=== PATIENT | female | born 1970 | race African-American/Black ===

== ENCOUNTER 2016-07-02 18:58 | Emergency (ER) | payer OTHER ==
[2016-07-02 19:10] VITALS: TEMP 98.4; BMI 41.9
--- NOTE | 2016-07-02 19:37 | PDOC ---
History of Present Illness - History of Present Illness Initial Comments: 07/02/16 19:52 Patient is a 46 year old female with no significant medical hx who is presenting to the ED with allergic reaction after antibiotic ingestion since this evening. Today the patient saw her urologist and started a course of Flagyl and Macrobid secondary to a bladder infection she developed after her hysterectomy (06/06/16). The patient reports after administering the medication and eating a salad, she developed burning and itching to her fingertips, chest tightness, and difficulty swallowing. The patient took two benadryl after 6 PM and states feeling better at this time. She did not administer an EpiPen. The patient states that usually during an allergic reaction she experiences itchiness, throat and chest tightness, hives and shortness of breath. She denies any rashes or difficulty breathing. Allergies: Antibiotics. Denies food allergies. PCP: Chika Paris MD Urologist: Fran Willis MD <Kaitlynn Hawk - Last Filed: 07/02/16 19:52> <Renetta Rodríguez - Last Filed: 07/03/16 01:14> - General Chief Complaint: Allergic Reaction Stated Complaint: Allergic Reaction Time Seen by Provider: 07/02/16 19:12 Past History <Kaitlynn Hawk - Last Filed: 07/02/16 19:52> - Past Medical History Anemia: No Asthma: No Cancer: No Cardiac Disorders: No CVA: No COPD: No CHF: No Dementia: No Diabetes: No GI Disorders: No Disorders: Yes (MULTIPLE UTI'S, RENAL CALCULI) HTN: No Hypercholesterolemia: No Kidney Stones: Yes Liver Disease: No Psychiatric Problems: Yes (DEPRESSION ANXIETY) Seizures: No Thyroid Disease: Yes ("thyroid" problem) - Surgical History Abdominal Surgery: Yes (TUBAL LIGATION) Appendectomy: No Cardiac Surgery: No Cholecystectomy: No Lung Surgery: No Neurologic Surgery: No Orthopedic Surgery: No - Immunization History Immunization Up to Date: Yes - Psycho/Social/Smoking Cessation Hx Anxiety: No Suicidal Ideation: No Smoking Status: No Smoking History: Never smoked Have you smoked in the past 12 months: No Number of Cigarettes Smoked Daily: 0 If you are a former smoker, when did you quit?: 18months ago Information on smoking cessation initiated: No Hx Alcohol Use: No Drug/Substance Use Hx: No Substance Use Type: None Hx Substance Use Treatment: No <Renetta Rodríguez - Last Filed: 07/03/16 01:14> - Past Medical History Allergies/Adverse Reactions: Allergies Allergy/AdvReac Type Severity Reaction Status Date / Time cephalexin monohydrate Allergy Rash Verified 07/02/16 19:10 [From Keflex] ciprofloxacin [From Cipro] Allergy Rash Verified 07/02/16 19:10 ciprofloxacin HCl Allergy Rash Verified 07/02/16 19:10 [From Cipro] gentamicin [Gentamicin] Allergy Rash Verified 07/02/16 19:10 levofloxacin [From Levaquin] Allergy Rash Verified 07/02/16 19:10 nitrofurantoin Allergy Hives Verified 07/02/16 20:26 [From Macrobid] nitrofurantoin Allergy Hives Verified 07/02/16 20:26 macrocrystalline [From Macrobid] Penicillins Allergy Rash Verified 07/02/16 19:10 Sulfa (Sulfonamide Allergy Rash Verified 07/02/16 19:10 Antibiotics) [Sulfa(Sulfonamide Antibiotics)] Home Medications: Ambulatory Orders Sertraline HCl [Zoloft] 100 mg PO BID 06/02/15 Meloxicam [Mobic] 15 mg PO DAILY 03/12/16 Buspirone HCl [Buspar -] 5 mg PO DAILY 07/02/16 Gabapentin [Neurontin] 600 mg PO DAILY 07/02/16 Oxycodone HCl [Roxicodone -] 5 mg PO ASDIR PRN 07/02/16 Review of Systems - Review of Systems Comments:: 07/02/16 20:03 CONSTITUTIONAL: Absent: fever, chills, diaphoresis, generalized weakness, malaise, loss of appetite HEENT: Present: difficult swallowing Absent: rhinorrhea, nasal congestion, throat pain, throat swelling, mouth swelling, ear pain, eye pain, visual changes CARDIOVASCULAR: Present: chest tightness Absent: syncope, palpitations, irregular heart rate, lightheadedness, peripheral edema RESPIRATORY: Absent: cough, shortness of breath, dyspnea with exertion, orthopnea, wheezing, stridor, hemoptysis GASTROINTESTINAL: Absent: abdominal pain, abdominal distension, nausea, vomiting, diarrhea, constipation, melena, hematochezia GENITOURINARY: Absent: dysuria, frequency, urgency, hesitancy, hematuria, flank pain, genital pain MUSCULOSKELETAL: Absent: myalgia, arthralgia, joint swelling SKIN: Absent: rash, itching, pallor HEMATOLOGIC/IMMUNOLOGIC: Absent: easy bleeding, easy bruising, lymphadenopathy, frequent infections ENDOCRINE: Absent: unexplained weight gain, unexplained weight loss, heat intolerance, cold intolerance NEUROLOGIC: Present: tingling and itchiness to fingertips Absent: headache, focal weakness or paresthesia, dizziness, unsteady gait, seizure, mental status changes, bladder or bowel incontinence. PSYCHIATRIC: Absent: anxiety, depression, suicidal or homicidal ideation, hallucinations <Kaitlynn Hawk - Last Filed: 07/02/16 19:52> *Physical Exam - Vital Signs Last Vital Signs Temp Pulse Resp BP Pulse Ox 98.4 F 71 18 131/78 98 07/02/16 18:59 07/02/16 18:59 07/02/16 18:59 07/02/16 18:59 07/02/16 18:59 - Physical Exam Comments: 07/02/16 20:04 GENERAL: Well developed, well nourished. Awake and alert. No acute distress. HEENT: Normocephalic, atraumatic. PERRLA, EOMI. No conjunctival pallor. Sclera are non- icteric. Moist mucous membranes. Oropharynx is clear. Uvula is midline and nonedematous. No lip swelling. No hot potato voice. NECK: Supple. Full ROM. No JVD. Carotid pulses 2+ and symmetric, without bruits. No thyromegaly. No lymphadenopathy. CARDIOVASCULAR: Regular rate and rhythm. No murmurs, rubs, or gallops. Distal pulses are 2+ and symmetric. PULMONARY: No evidence of respiratory distress. Lungs clear to auscultation bilaterally. No wheezing, rales or rhonchi. ABDOMINAL: Protuberant. Soft. Non-tender. Non-distended. No rebound or guarding. No organomegaly. Normoactive bowel sounds. MUSCULOSKELETAL: Normal range of motion at all joints. No bony deformities or tenderness. No CVA tenderness. EXTREMITIES: No cyanosis. No clubbing. No edema. No calf tenderness. SKIN: Warm and dry. Normal capillary refill. No rashes. No jaundice. NEUROLOGICAL: Alert, awake, appropriate. Cranial nerves 2-12 intact. Normal speech. Gait is normal without ataxia. PSYCHIATRIC: Cooperative. Good eye contact. Appropriate mood and affect. <Kaitlynn Hawk - Last Filed: 07/02/16 19:52> - Vital Signs Last Vital Signs Temp Pulse Resp BP Pulse Ox 98.4 F 71 18 131/78 98 07/02/16 18:59 07/02/16 18:59 07/02/16 18:59 07/02/16 18:59 07/02/16 18:59 <Renetta Rodríguez - Last Filed: 07/03/16 01:14> Medical Decision Making - Medical Decision Making 07/03/16 01:12 46 yo female w multiple antibiotics allergies took macrobid and dev hives and some chest tightness that completely resolved after steroids and benadryl -no wheezing/uvula midline IMP drug allergy <Renetta Rodríguez - Last Filed: 07/03/16 01:14> *DC/Admit/Observation/Transfer - Attestations Scribe Attestion: 07/02/16 20:05 Documentation prepared by Kaitlynn Hawk, acting as biomedical specialist for Renetta Rodríguze MD. <Kaitlynn Hawk - Last Filed: 07/02/16 19:52> <Renetta Rodríguez - Last Filed: 07/03/16 01:14> Diagnosis at time of Disposition: Multiple drug allergies - Discharge Dispostion Disposition: HOME Condition at time of disposition: Stable - Referrals Referrals: Chika Paris MD [Primary Care Provider] - - Patient Instructions Printed Discharge Instructions: DI for Adverse Drug Reaction -- Allergic Additional Instructions: please take benadryl if you develop any further itching return for any breathing difficulties
[2016-07-02] MEDS ORDERED: methylPREDNISolone NA SUCC 125 MG/2 ML VIAL IVPB ONE (19:41)
[2016-07-02] MEDS ORDERED: methylPREDNISolone NA SUCC 125 MG/2 ML VIAL ONE ×2 (19:53→19:54)
[2016-07-02 21:14] VITALS: BP 133/83; PULSE 84
== END 2016-07-02 21:12 | disposition home or self-care (01) ==
LOC: JER 18:58
PROC: 3E0333Z Introduction of Anti-inflammatory into Peripheral Vein, Percutaneous Approach (ICD-10-PCS; principal; 2016-07-02)
DX: L50.0 Allergic urticaria (principal); T36.8X5A Adverse effect of other systemic antibiotics, initial encounter; Y92.89 Other specified places as the place of occurrence of the external cause
CPT/HCPCS: 96374; 96375; 99283-25

== ENCOUNTER 2016-12-08 06:40 | Emergency (ER) | payer OTHER ==
[2016-12-08 06:57] VITALS: BP 139/83; PULSE 97; TEMP 98.4; BMI 41.9
[2016-12-08 08:18] LABS: BASOPHIL 1.1 % (0-2.0); EOSINOPHIL 1.8 % (0-4.5); MCH 30.4 pg (25.7-33.7); MCHC 33.7 g/dl (32.0-36.0); MEAN PLT VOLUME 6.8 fl (7.5-11.1); PLATELET COUNT 269 K/MM3 (134-434); RDW 14.1 % (11.6-15.6); WHITE BLOOD COUNT 7.4 K/mm3 (4.0-10.0)
--- NOTE | 2016-12-08 08:21 | PDOC ---
History of Present Illness - General History Source: Patient - History of Present Illness Occurred: reports: last week Lower Extremity Pain Location: bilateral: leg <Deepa BynumPhi - Last Filed: 12/08/16 10:02> <Rodrigue Mcmanus - Last Filed: 12/08/16 17:39> - General Chief Complaint: Edema Stated Complaint: SWELLING OF FEET Time Seen by Provider: 12/08/16 07:08 Past History - Past Medical History Anemia: No Asthma: No Cancer: No Cardiac Disorders: No CVA: No COPD: No CHF: No Dementia: No Diabetes: No GI Disorders: No Disorders: Yes (MULTIPLE UTI'S, RENAL CALCULI) HTN: No Hypercholesterolemia: No Kidney Stones: Yes Liver Disease: No Psychiatric Problems: Yes (DEPRESSION ANXIETY) Seizures: No Thyroid Disease: Yes ("thyroid" problem) - Surgical History Abdominal Surgery: Yes (TUBAL LIGATION) Appendectomy: No Cardiac Surgery: No Cholecystectomy: No Lung Surgery: No Neurologic Surgery: No Orthopedic Surgery: No - Immunization History Immunization Up to Date: Yes - Psycho/Social/Smoking Cessation Hx Anxiety: No Suicidal Ideation: No Smoking Status: No Smoking History: Never smoked Have you smoked in the past 12 months: No Number of Cigarettes Smoked Daily: 0 If you are a former smoker, when did you quit?: 18months ago Information on smoking cessation initiated: No Hx Alcohol Use: No Drug/Substance Use Hx: No Substance Use Type: None Hx Substance Use Treatment: No <Deepa BynumPhi - Last Filed: 12/08/16 10:02> <Rodrigue Mcmanus - Last Filed: 12/08/16 17:39> - Past Medical History Allergies/Adverse Reactions: Allergies Allergy/AdvReac Type Severity Reaction Status Date / Time cephalexin monohydrate Allergy Rash Verified 12/08/16 06:56 [From Keflex] ciprofloxacin [From Cipro] Allergy Rash Verified 12/08/16 06:56 ciprofloxacin HCl Allergy Rash Verified 12/08/16 06:56 [From Cipro] gentamicin [Gentamicin] Allergy Rash Verified 12/08/16 06:56 levofloxacin [From Levaquin] Allergy Rash Verified 12/08/16 06:56 nitrofurantoin Allergy Hives Verified 12/08/16 06:56 [From Macrobid] nitrofurantoin Allergy Hives Verified 12/08/16 06:56 macrocrystalline [From Macrobid] Penicillins Allergy Rash Verified 12/08/16 06:56 Sulfa (Sulfonamide Allergy Rash Verified 12/08/16 06:56 Antibiotics) [Sulfa(Sulfonamide Antibiotics)] Home Medications: Ambulatory Orders Sertraline HCl [Zoloft] 100 mg PO BID 06/02/15 Meloxicam [Mobic] 15 mg PO DAILY 03/12/16 Gabapentin [Neurontin] 600 mg PO DAILY 07/02/16 Oxycodone HCl [Roxicodone -] 5 mg PO ASDIR PRN 07/02/16 Cyclobenzaprine HCl [Flexeril -] 10 mg PO TID 12/08/16 Trazodone HCl 0 mg PO HS 12/08/16 Review of Systems - Review of Systems Constitutional: No: Chills, Fever Respiratory: No: Shortness of Breath Cardiac (ROS): No: Chest Pain <Natty Bynum - Last Filed: 12/08/16 10:02> *Physical Exam - Vital Signs Last Vital Signs Temp Pulse Resp BP Pulse Ox 98.4 F 97 H 18 139/83 97 12/08/16 06:56 12/08/16 06:56 12/08/16 06:56 12/08/16 06:56 12/08/16 07:20 - Physical Exam General Appearance: Yes: Appropriately Dressed. No: Apparent Distress HEENT: positive: Normal Voice Neck: positive: Supple Respiratory/Chest: positive: Lungs Clear, Normal Breath Sounds. negative: Respiratory Distress Cardiovascular: positive: Regular Rate, S1, S2 Extremity: positive: Pedal Edema (R>L, non-tender, no erythema, skin warm b/l, unable to palpate pulses 2/2 swelling) Integumentary: positive: Dry, Warm Neurologic: positive: Fully Oriented, Alert, Normal Mood/Affect <Natty Bynum - Last Filed: 12/08/16 10:02> - Vital Signs Last Vital Signs Temp Pulse Resp BP Pulse Ox 98.4 F 97 H 18 139/83 97 12/08/16 06:56 12/08/16 06:56 12/08/16 06:56 12/08/16 06:56 12/08/16 07:20 <Rodrigue Mcmanus - Last Filed: 12/08/16 17:39> ED Treatment Course - LABORATORY CBC & Chemistry Diagram: 12/08/16 07:35 12/08/16 07:35 - RADIOLOGY Radiology Studies Ordered: Category Date Time Status DUPLEX VASCUL [id number] [US] Stat Ultrasound 12/08/16 07:34 Ordered <Natty Bynum - Last Filed: 12/08/16 10:02> - LABORATORY CBC & Chemistry Diagram: 12/08/16 07:35 12/08/16 07:35 - ADDITIONAL ORDERS Additional order review: Laboratory Results 12/08/16 12/08/16 08:00 07:35 Sodium 139 Potassium 4.0 Chloride 104 Carbon Dioxide 28 Anion Gap 7 L BUN 13 D Creatinine 0.8 D Creat Clearance w eGFR > 60 Random Glucose 117 H Calcium 8.6 Total Bilirubin 0.5 D AST 29 D ALT 27 D Alkaline Phosphatase 61 B-Natriuretic Peptide 17.79 Total Protein 7.1 Albumin 3.4 Urine Color Ltyellow Urine Appearance Clear Urine pH 6.0 Ur Specific [place] 1.020 Urine Protein Negative Urine Glucose (UA) Negative Urine Ketones Negative Urine Blood 1+ H Urine Nitrite Negative Urine Bilirubin Negative Urine Urobilinogen 4.0 e.u/dl H Ur Leukocyte Esterase Negative Urine RBC 4 Urine WBC 1 Ur Epithelial Cells Moderate Urine Bacteria Rare Urine Mucus Rare 12/08/16 07:35 RBC 3.91 MCV 90.0 MCHC 33.7 RDW 14.1 MPV 6.8 L Neutrophils % 54.0 D Lymphocytes % 37.6 Monocytes % 5.5 Eosinophils % 1.8 Basophils % 1.1 <Rodrigue Mcmanus - Last Filed: 12/08/16 17:39> Medical Decision Making - Medical Decision Making 12/08/16 07:37 46 yo F, morbidly obesed, fibromyalgia, p/w LE swelling. Pt reports b/l LE swelling x 1 week. No pain. Had similar symptoms in the past and was evaluated by vascular and diagnosed with ?venous stasis. Was given compression stockings at the time, which improved symptoms. Patient states she returned from the [place] several days ago and that symptoms recurred while there. Denies any chest pain, shortness of breath or palpitations See exam Recurrent LE edema Dx w/ venous stasis in the past No resp/chest complaints No new meds -basic labs -US given recent travel though DVT unlikely given HPI -anticipate discharge w/ vasc f/u 12/08/16 08:21 12/08/16 10:02 Labs and US unremarkable. Stable for discharge w/ vascular f/u <Natty Bynum - Last Filed: 12/08/16 10:02> - Medical Decision Making 12/08/16 17:39 The patient was seen and evaluated in conjunction with RAVEN Bynum under my direct supervision, ancillary studies were reviewed. I agree with the plan as outlined by RAVEN Bynum. <Rodrigue Mcmanus - Last Filed: 12/08/16 17:39> *DC/Admit/Observation/Transfer <Natty Bynum - Last Filed: 12/08/16 10:02> <Rodrigue Mcmanus - Last Filed: 12/08/16 17:39> Diagnosis at time of Disposition: Edema Qualifiers: Edema type: localized Qualified Code(s): R60.0 - Localized edema - Discharge Dispostion Disposition: HOME Condition at time of disposition: Good - Referrals Referrals: Chika Paris MD [Primary Care Provider] - - Patient Instructions Printed Discharge Instructions: DI for Peripheral Edema -- Bilateral Additional Instructions: The cause of your edema is unclear at this time as your labs an ultrasound were normal. It is possible that swelling is due to faulty leg veins. Elevate legs at home and follow-up with your vascular doctor for further evaluation
[2016-12-08 08:48] LABS: ALBUMIN 3.4 g/dl (3.4-5.0); ANION GAP 7 (8-16); BILIRUBIN,TOTAL 0.5 mg/dL (0.2-1.0); CALCIUM 8.6 mg/dL (8.5-10.1); CO2 28 mmol/L (21-32); CREATININE 0.8 mg/dL (0.55-1.02); GLUCOSE,RANDOM 117 mg/dL (74-106); SGOT/AST 29 U/L (15-37); SGPT/ALT 27 U/L (12-78); TOT PROT 7.1 g/dl (6.4-8.2)
[2016-12-08 08:50] LABS: ALK PHOS 61 U/L (45-117)
[2016-12-08 09:13] LABS: URINE APPEARANCE CLEAR; URINE BILIRUBIN NEGATIVE (NEGATIVE); URINE BLOOD 1+ (NEGATIVE); URINE COLOR LTYELLOW; URINE GLUCOSE (UA) NEGATIVE (NEGATIVE); URINE KETONE NEGATIVE (NEGATIVE); URINE LEUK ESTERASE NEGATIVE (NEGATIVE); URINE NITRITE NEGATIVE (NEGATIVE); URINE PROTEIN NEGATIVE (NEGATIVE); URINE UROBILINOGEN 4.0 E.U/dl mg/dL (0.2-1.0)
[2016-12-08 09:18] LABS: URINE BACTERIA RARE /hpf (NONE SEEN); URINE MUCUS RARE; URINE RBC 4 /hpf (0-3); URINE WBC 1 /hpf (3-5)
== END 2016-12-08 10:14 | disposition home or self-care (01) ==
LOC: JER 06:40
DX: R60.0 Localized edema (principal); M79.7 Fibromyalgia; F41.8 Other specified anxiety disorders; Z87.440 Personal history of urinary (tract) infections; Z87.442 Personal history of urinary calculi
CPT/HCPCS: 36415; 80053; 81003; 81015; 83880; 85025; 93970-TC; 99284-25

== ENCOUNTER 2017-05-13 18:43 | Emergency (ER) | payer OTHER ==
[2017-05-13 18:54] VITALS: BP 180/105; PULSE 113; BMI 43.5
--- NOTE | 2017-05-13 19:01 | PDOC ---
Rapid Medical Evaluation Chief Complaint: SIRS, Suspected/Possible Time Seen by Provider: 05/13/17 18:48 Medical Evaluation: Allergies Allergy/AdvReac Type Severity Reaction Status Date / Time cephalexin monohydrate Allergy Rash Verified 05/13/17 18:51 [From Keflex] ciprofloxacin [From Cipro] Allergy Rash Verified 05/13/17 18:51 ciprofloxacin HCl Allergy Rash Verified 05/13/17 18:51 [From Cipro] gentamicin [Gentamicin] Allergy Rash Verified 05/13/17 18:51 levofloxacin [From Levaquin] Allergy Rash Verified 05/13/17 18:51 nitrofurantoin Allergy Hives Verified 05/13/17 18:51 [From Macrobid] nitrofurantoin Allergy Hives Verified 05/13/17 18:51 macrocrystalline [From Macrobid] Penicillins Allergy Rash Verified 05/13/17 18:51 Sulfa (Sulfonamide Allergy Rash Verified 05/13/17 18:51 Antibiotics) [Sulfa(Sulfonamide Antibiotics)] Vital Signs Temp Pulse Resp BP Pulse Ox 99.6 F 113 H 18 180/105 96 05/13/17 18:51 05/13/17 18:51 05/13/17 18:51 05/13/17 18:51 05/13/17 18:51 05/13/17 18:57 Pt presents to the ED: Dysuria, urinary frequency Pt on exam: VSS, Pt ordered for: ua, ucx Pt to proceed to the ED Discharge Disposition - Diagnosis Dysuria - Referrals - Patient Instructions - Post Discharge Activity
[2017-05-13 19:27] LABS: URINE APPEARANCE CLOUDY; URINE BILIRUBIN NEGATIVE (NEGATIVE); URINE BLOOD 3+ (NEGATIVE); URINE COLOR AMBER; URINE GLUCOSE (UA) NEGATIVE (NEGATIVE); URINE KETONE NEGATIVE (NEGATIVE); URINE NITRITE POSITIVE (NEGATIVE); URINE UROBILINOGEN 4.0 E.U/dl mg/dL (0.2-1.0)
[2017-05-13 19:36] LABS: URINE LEUK ESTERASE 3+ (NEGATIVE); URINE PROTEIN 2+ (NEGATIVE)
[2017-05-13 19:38] LABS: URINE BACTERIA RARE /hpf (NONE SEEN); URINE MUCUS RARE; URINE RBC 260 /hpf (0-3); URINE WBC 606 /hpf (3-5)
[2017-05-13 20:59] LABS: URINE LEUK ESTERASE 2+ (NEGATIVE)
[2017-05-13] MEDS ORDERED: ACETAMINOPHEN 325 MG TABLET (FP) PO ONE (21:00)
[2017-05-13 21:01] VITALS: TEMP 100.4
[2017-05-13] MEDS ORDERED: ACETAMINOPHEN 325 MG TABLET (FP) ONE (21:01)
[2017-05-13 21:27] LABS: BASO # 0.1 # (0.1-1); EOS # 0.1 # (0-4.5); EOS % 1.7 % (0-4.5); LYMPH # 1.4 (8-40); MCH 30.1 pg (25.7-33.7); MCHC 33.4 g/dl (32.0-36.0); MEAN CELL VOLUME 90.1 fl (80-96); MEAN PLT VOLUME 7.1 fl (7.5-11.1); MONO # 0.5 # (3.8-10.2); NEUT % 73.6 % (42.8-82.8); PLATELET COUNT 258 K/MM3 (134-434); RDW 13.7 % (11.6-15.6); WHITE BLOOD COUNT 8.2 K/mm3 (4.0-10.0)
[2017-05-13 21:41] LABS: INR 0.96 (0.82-1.09); PROTHROMBIN TIME (PATIENT) 10.8 SEC (9.98-11.88)
[2017-05-13 21:44] LABS: ACTIVATED PTT 36.1 SECONDS (26.9-34.4)
[2017-05-13 21:54] LABS: ALBUMIN 3.4 g/dl (3.4-5.0); ALK PHOS 100 U/L (45-117); ANION GAP 7 (8-16); BILIRUBIN,TOTAL 0.3 mg/dL (0.2-1.0); CALCIUM 8.1 mg/dL (8.5-10.1); CO2 25 mmol/L (21-32); CREATININE 0.8 mg/dL (0.55-1.02); GLUCOSE,RANDOM 156 mg/dL (74-106); SGOT/AST 125 U/L (15-37); SGPT/ALT 111 U/L (12-78); TOT PROT 7.4 g/dl (6.4-8.2)
[2017-05-13] MEDS ORDERED: DOXYCYCLINE HYCLATE 100 MG CAPSULE PO ONE ×2 (21:57→22:00)
--- NOTE | 2017-05-13 21:58 | PDOC ---
History of Present Illness - General History Source: Patient Exam Limitations: No Limitations - History of Present Illness Initial Comments: 05/13/17 22:16 The patient is a 47 year old female with a significant PMH of chronic UTIs and kidney stones who presents to the emergency department with a urinary tract infection. As per the patients allergy bracelet, the patient is allergic to multiple antibiotics. The only oral antibiotic not on the patients allergy bracelet is Doxycycline. The patient also reports having a fever within the past week which has resolved upon presentation. The patient denies chest pain, shortness of breath, headache and dizziness. Denies fever, chills, nausea, vomit, diarrhea and constipation. Denies urinary frequency, urgency and hematuria. Allergies: Cephalexin monohydrate, Ciprofloxacin, Ciprofloxacin HCl, Gentamicin , Levofloxacin, Nitrofurantoin, Nitrofurantoin macrocrystalline, Penicllins, Sulfonamide antibiotics. Past surgical history: Tubal ligation. Social history: Former smoker. No reported alcohol or drug use. PCP: Dr. Chika Paris <Meliton Best - Last Filed: 05/13/17 22:18> - General History Source: Patient <Nikos Tuttle - Last Filed: 05/13/17 22:50> - General Chief Complaint: SIRS, Suspected/Possible Stated Complaint: URINARY PROBLEM Time Seen by Provider: 05/13/17 18:48 Past History <Meliton Best - Last Filed: 05/13/17 22:18> - Past Medical History Anemia: No Asthma: No Cancer: No Cardiac Disorders: No CVA: No COPD: No CHF: No DVT: No Dementia: No Diabetes: No GI Disorders: No Disorders: Yes (MULTIPLE UTI'S, RENAL CALCULI) HTN: No Hypercholesterolemia: No Kidney Stones: Yes Liver Disease: No Psychiatric Problems: Yes (DEPRESSION ANXIETY) Seizures: No Thyroid Disease: Yes (hyper) Other medical history: fibromyalgia - Surgical History Abdominal Surgery: Yes (TUBAL LIGATION) Appendectomy: No Cardiac Surgery: No Cholecystectomy: No Lung Surgery: No Neurologic Surgery: No Orthopedic Surgery: No - Immunization History Immunization Up to Date: Yes - Suicide/Smoking/Psychosocial Hx Smoking Status: No Smoking History: Never smoked Have you smoked in the past 12 months: No Number of Cigarettes Smoked Daily: 0 If you are a former smoker, when did you quit?: 18months ago Information on smoking cessation initiated: No Hx Alcohol Use: No Drug/Substance Use Hx: No Substance Use Type: None Hx Substance Use Treatment: No <Nikos Tuttle - Last Filed: 05/13/17 22:50> - Past Medical History Allergies/Adverse Reactions: Allergies Allergy/AdvReac Type Severity Reaction Status Date / Time cephalexin monohydrate Allergy Rash Verified 05/13/17 18:51 [From Keflex] ciprofloxacin [From Cipro] Allergy Rash Verified 05/13/17 18:51 ciprofloxacin HCl Allergy Rash Verified 05/13/17 18:51 [From Cipro] gentamicin [Gentamicin] Allergy Rash Verified 05/13/17 18:51 levofloxacin [From Levaquin] Allergy Rash Verified 05/13/17 18:51 nitrofurantoin Allergy Hives Verified 05/13/17 18:51 [From Macrobid] nitrofurantoin Allergy Hives Verified 05/13/17 18:51 macrocrystalline [From Macrobid] Penicillins Allergy Rash Verified 05/13/17 18:51 Sulfa (Sulfonamide Allergy Rash Verified 05/13/17 18:51 Antibiotics) [Sulfa(Sulfonamide Antibiotics)] Home Medications: Ambulatory Orders Sertraline HCl [Zoloft] 100 mg PO BID 06/02/15 Meloxicam [Mobic] 15 mg PO DAILY 03/12/16 Gabapentin [Neurontin] 600 mg PO DAILY 07/02/16 Oxycodone HCl [Roxicodone -] 5 mg PO ASDIR PRN 07/02/16 Cyclobenzaprine HCl [Flexeril -] 10 mg PO TID 12/08/16 Trazodone HCl 0 mg PO HS 12/08/16 Doxycycline Hyclate [Vibramycin -] 100 mg PO BID #20 cap 05/13/17 Review of Systems - Review of Systems Able to Perform ROS?: Yes Comments:: 05/13/17 22:16 CONSTITUTIONAL: Absent: fever, chills, diaphoresis, generalized weakness, malaise, loss of appetite HEENT: Absent: rhinorrhea, nasal congestion, throat pain, throat swelling, difficulty swallowing, mouth swelling, ear pain, eye pain, visual Changes CARDIOVASCULAR: Absent: chest pain, syncope, palpitations, irregular heart rate, lightheadedness , peripheral edema RESPIRATORY: Absent: cough, shortness of breath, dyspnea with exertion, orthopnea, wheezing, stridor, hemoptysis GASTROINTESTINAL: Absent: abdominal pain, abdominal distension, nausea, vomiting, diarrhea, constipation, melena, hematochezia GENITOURINARY: (+) Urinary tract infection. Absent: urinary frequency, urgency, hesitancy, hematuria, flank pain, genital pain MUSCULOSKELETAL: Absent: myalgia, arthralgia, joint swelling SKIN: Absent: rash, itching, pallor HEMATOLOGIC/IMMUNOLOGIC: Absent: easy bleeding, easy bruising, lymphadenopathy, frequent infections ENDOCRINE: Absent: unexplained weight gain, unexplained weight loss, heat intolerance, cold intolerance NEUROLOGIC: Absent: headache, focal weakness or paresthesias, dizziness, unsteady gait, seizure, mental status changes, bladder or bowel incontinence PSYCHIATRIC: Absent: anxiety, depression, suicidal or homicidal ideation, hallucinations. <Meliton Best - Last Filed: 05/13/17 22:18> *Physical Exam - Vital Signs Last Vital Signs Temp Pulse Resp BP Pulse Ox 100.4 F H 113 H 18 180/105 96 05/13/17 21:00 05/13/17 18:51 05/13/17 18:51 05/13/17 18:51 05/13/17 18:51 - Physical Exam Comments: 05/13/17 22:16 GENERAL: (+) Morbidly obese. Well developed, well nourished. Awake and alert. No acute distress. HEENT: Normocephalic, atraumatic. PERRLA, EOMI. No conjunctival pallor. Sclera are non- icteric. Moist mucous membranes. Oropharynx is clear. NECK: Supple. Full ROM. No JVD. Carotid pulses 2+ and symmetric, without bruits. No thyromegaly. No lymphadenopathy. CARDIOVASCULAR: Regular rate and rhythm. No murmurs, rubs, or gallops. Distal pulses are 2+ and symmetric. PULMONARY: No evidence of respiratory distress. Lungs clear to auscultation bilaterally. No wheezing, rales or rhonchi. ABDOMINAL: Soft. Non-tender. Non-distended. No rebound or guarding. No organomegaly. Normoactive bowel sounds. MUSCULOSKELETAL Normal range of motion at all joints. No bony deformities or tenderness. No CVA tenderness. EXTREMITIES: No cyanosis. No clubbing. No edema. No calf tenderness. SKIN: Warm and dry. Normal capillary refill. No rashes. No jaundice. NEUROLOGICAL: Alert, awake, appropriate. Cranial nerves 2-12 intact. No deficits to light touch and temperature in face, upper extremities and lower extremities. No motor deficits in the in face, upper extremities and lower extremities. Normoreflexic in the upper and lower extremities. Normal speech. Toes are down- going bilaterally. Gait is normal without ataxia. PSYCHIATRIC: Cooperative. Good eye contact. Appropriate mood and affect. <Meliton Best - Last Filed: 05/13/17 22:18> - Vital Signs Last Vital Signs Temp Pulse Resp BP Pulse Ox 100.4 F H 113 H 18 180/105 96 05/13/17 21:00 05/13/17 18:51 05/13/17 18:51 05/13/17 18:51 05/13/17 18:51 <Nikos Tuttle - Last Filed: 05/13/17 22:50> ED Treatment Course - LABORATORY CBC & Chemistry Diagram: 05/13/17 21:20 05/13/17 21:20 - ADDITIONAL ORDERS Additional order review: Laboratory Results 05/13/17 05/13/17 05/13/17 21:20 21:20 18:56 PT with INR 10.80 INR 0.96 PTT (Actin FS) 36.1 H Sodium 138 Potassium 3.9 Chloride 106 Carbon Dioxide 25 Anion Gap 7 L BUN 11 Creatinine 0.8 Creat Clearance w eGFR > 60 Random Glucose 156 H D Calcium 8.1 L Total Bilirubin 0.3 D AST 125 H D ALT 111 H D Alkaline Phosphatase 100 D Total Protein 7.4 Albumin 3.4 Urine Color Elena Urine Appearance Cloudy Urine pH 6.0 Ur Specific [place] 1.017 Urine Protein 2+ H Urine Glucose (UA) Negative Urine Ketones Negative Urine Blood 3+ H Urine Nitrite Positive Urine Bilirubin Negative Urine Urobilinogen 4.0 e.u/dl H Ur Leukocyte Esterase 2+ H Urine WBC (Auto) 606 Urine RBC (Auto) 260 Ur Epithelial Cells Rare Urine Bacteria Rare Urine Mucus Rare 05/13/17 21:20 RBC 4.19 MCV 90.1 MCHC 33.4 RDW 13.7 MPV 7.1 L Neutrophils % 73.6 D Lymphocytes % 17.5 D Monocytes % 6.2 Eosinophils % 1.7 Basophils % 1.0 - Medications Given in the ED: ED Medications Discontinued Medications Generic Name Dose Route Start Last Admin Trade Name Freko PRN Reason Stop Dose Admin Acetaminophen 650 mg 05/13/17 21:00 05/13/17 21:03 Tylenol - PO 05/13/17 21:01 650 mg ONCE ONE Administration Doxycycline Hyclate 100 mg 05/13/17 21:57 05/13/17 22:06 Vibramycin - PO 05/13/17 21:58 100 mg ONCE ONE Administration <Meliton Best - Last Filed: 05/13/17 22:18> - LABORATORY CBC & Chemistry Diagram: 05/13/17 21:20 05/13/17 21:20 - ADDITIONAL ORDERS Additional order review: Laboratory Results 05/13/17 05/13/17 05/13/17 21:20 21:20 18:56 PT with INR 10.80 INR 0.96 PTT (Actin FS) 36.1 H Sodium 138 Potassium 3.9 Chloride 106 Carbon Dioxide 25 Anion Gap 7 L BUN 11 Creatinine 0.8 Creat Clearance w eGFR > 60 Random Glucose 156 H D Calcium 8.1 L Total Bilirubin 0.3 D AST 125 H D ALT 111 H D Alkaline Phosphatase 100 D Total Protein 7.4 Albumin 3.4 Urine Color Elena Urine Appearance Cloudy Urine pH 6.0 Ur Specific [place] 1.017 Urine Protein 2+ H Urine Glucose (UA) Negative Urine Ketones Negative Urine Blood 3+ H Urine Nitrite Positive Urine Bilirubin Negative Urine Urobilinogen 4.0 e.u/dl H Ur Leukocyte Esterase 2+ H Urine WBC (Auto) 606 Urine RBC (Auto) 260 Ur Epithelial Cells Rare Urine Bacteria Rare Urine Mucus Rare 05/13/17 21:20 RBC 4.19 MCV 90.1 MCHC 33.4 RDW 13.7 MPV 7.1 L Neutrophils % 73.6 D Lymphocytes % 17.5 D Monocytes % 6.2 Eosinophils % 1.7 Basophils % 1.0 - Medications Given in the ED: ED Medications Discontinued Medications Generic Name Dose Route Start Last Admin Trade Name Freq PRN Reason Stop Dose Admin Acetaminophen 650 mg 05/13/17 21:00 05/13/17 21:03 Tylenol - PO 05/13/17 21:01 650 mg ONCE ONE Administration <Nikos Tuttle - Last Filed: 05/13/17 22:50> Medical Decision Making - Medical Decision Making 05/13/17 22:49 Dr. Tuttle: The scribe's documentation has been prepared under my direction and personally reviewed by me in its entirery. I confirm that the note above accurately reflects all work, treatment, procedures, and medical decision making performed by me. Pt wanted to wait to see if she developed an allergic reaction to the Doxycycline. Will now discharge. Rx Doxycycline 10omg PO <Nikos Tuttle - Last Filed: 05/13/17 22:50> *DC/Admit/Observation/Transfer - Attestations Scribe Attestion: 05/13/17 22:17 Documentation prepared by Meliton Best, acting as medical transcription radiology for Nikos Tuttle DO. <Meliton Best - Last Filed: 05/13/17 22:18> - Discharge Dispostion Admit: No <Nikos Tuttle - Last Filed: 05/13/17 22:50> Diagnosis at time of Disposition: Dysuria Urinary tract infection Qualifiers: Encounter type: subsequent encounter - Discharge Dispostion Disposition: HOME Condition at time of disposition: Stable - Prescriptions Prescriptions: Doxycycline Hyclate [Vibramycin -] 100 mg PO BID #20 cap - Referrals Referrals: Chika Paris MD [Primary Care Provider] - - Patient Instructions Printed Discharge Instructions: DI for Urinary Tract Infection (UTI) - Post Discharge Activity
== END 2017-05-13 23:24 | disposition home or self-care (01) ==
LOC: JER 18:43
DX: N39.0 Urinary tract infection, site not specified (principal); B96.89 Other specified bacterial agents as the cause of diseases classified elsewhere; F41.8 Other specified anxiety disorders; Z87.442 Personal history of urinary calculi; Z87.440 Personal history of urinary (tract) infections; M79.7 Fibromyalgia
CPT/HCPCS: 36415; 80053; 81003; 81015; 85025; 85610; 85730; 87040; 87086; 87186; 99281-25

== ENCOUNTER 2018-04-16 06:07 | Emergency (ER) | payer OTHER ==
[2018-04-16 07:12] VITALS: BP 128/87; PULSE 87; TEMP 98.4; BMI 40.3
--- NOTE | 2018-04-16 07:27 | PDOC ---
History of Present Illness - General Chief Complaint: Urinary Problem Stated Complaint: URINARY PROBLEM - History of Present Illness Initial Comments: 48 year old female with with PMHx of diabetes, seizure disorder (on depakote), fibromyalgia, and frequent UTIs presenting urinary frequency, hematuria, suprapubic pressure, and right lower back pain for the past 2 days. Patient states that she last had a UTI in May and gets them twice per year. She denies fevers, chills, nausea, vomiting, diarrhea, or other symptoms. Of note, she is allergic to penicllins, sulfas, floroquinolones, and states she usually gets erythromycin for her UTI treatment. 04/16/18 07:20 Past History - Past Medical History Allergies/Adverse Reactions: Allergies Allergy/AdvReac Type Severity Reaction Status Date / Time cephalexin monohydrate Allergy Rash Verified 04/16/18 07:12 [From Keflex] ciprofloxacin [From Cipro] Allergy Rash Verified 04/16/18 07:12 ciprofloxacin HCl Allergy Rash Verified 04/16/18 07:12 [From Cipro] gentamicin [Gentamicin] Allergy Rash Verified 04/16/18 07:12 levofloxacin [From Levaquin] Allergy Rash Verified 04/16/18 07:12 nitrofurantoin Allergy Hives Verified 04/16/18 07:12 [From Macrobid] nitrofurantoin Allergy Hives Verified 04/16/18 07:12 macrocrystalline [From Macrobid] Penicillins Allergy Rash Verified 04/16/18 07:12 Sulfa (Sulfonamide Allergy Rash Verified 04/16/18 07:12 Antibiotics) [Sulfa(Sulfonamide Antibiotics)] Home Medications: Ambulatory Orders Sertraline HCl [Zoloft] 100 mg PO BID 06/02/15 Meloxicam [Mobic] 15 mg PO DAILY 03/12/16 Gabapentin [Neurontin] 600 mg PO DAILY 07/02/16 oxyCODONE HCL [Roxicodone -] 5 mg PO ASDIR PRN 07/02/16 Cyclobenzaprine HCl [Flexeril -] 10 mg PO TID 12/08/16 traZODone HCL [Trazodone HCl] 0 mg PO HS 12/08/16 Doxycycline Hyclate [Vibramycin -] 100 mg PO BID #20 cap 04/16/18 Anemia: No Asthma: No Cancer: No Cardiac Disorders: No CVA: No COPD: No CHF: No DVT: No Dementia: No Diabetes: No GI Disorders: No Disorders: Yes (MULTIPLE UTI'S, RENAL CALCULI) HTN: No Hypercholesterolemia: No Kidney Stones: Yes Liver Disease: No Psychiatric Problems: Yes (DEPRESSION ANXIETY) Seizures: No Thyroid Disease: Yes (hyper) - Surgical History Abdominal Surgery: Yes (TUBAL LIGATION) Appendectomy: No Cardiac Surgery: No Cholecystectomy: No Lung Surgery: No Neurologic Surgery: No Orthopedic Surgery: No - Immunization History Immunization Up to Date: Yes - Suicide/Smoking/Psychosocial Hx Smoking Status: No Smoking History: Never smoked Have you smoked in the past 12 months: No Number of Cigarettes Smoked Daily: 0 If you are a former smoker, when did you quit?: 18months ago Information on smoking cessation initiated: No Hx Alcohol Use: No Drug/Substance Use Hx: No Substance Use Type: None Hx Substance Use Treatment: No Review of Systems - Review of Systems Constitutional: No: Chills, Diaphoresis, Fever, Loss of Appetite HEENTM: No: Blurred Vision, Tearing Respiratory: No: Cough, Orthopnea, Shortness of Breath Cardiac (ROS): No: Edema, Irregular Heart Rate ABD/GI: No: Diarrhea, Nausea, Vomiting : Yes: Dysuria, Frequency, Hematuria. No: Discharge Musculoskeletal: No: Gout, Joint Pain, Joint Swelling Integumentary: No: Lesions, Pruritus, Rash Neurological: Yes: Seizure. No: Headache, Numbness, Paresthesia Psychiatric: No: Anxiety, Depression Hematologic/Lymphatic: No: Anemia, Blood Clots, Easy Bleeding *Physical Exam - Vital Signs Last Vital Signs Temp Pulse Resp BP Pulse Ox 98.4 F 87 18 128/87 98 04/16/18 07:09 04/16/18 07:09 04/16/18 07:09 04/16/18 07:09 04/16/18 07:09 - Physical Exam General Appearance: Yes: Nourished, Appropriately Dressed. No: Apparent Distress HEENT: positive: EOMI, MARY, Normal ENT Inspection, Normal Voice Neck: positive: Trachea midline, Normal Thyroid, Supple. negative: Tender, Rigid Respiratory/Chest: positive: Lungs Clear, Normal Breath Sounds. negative: Chest Tender, Respiratory Distress, Accessory Muscle Use Cardiovascular: positive: Regular Rhythm, Regular Rate Gastrointestinal/Abdominal: positive: Normal Bowel Sounds, Flat, Soft. negative : Tender Lymphatic: negative: Adenopathy, Tenderness Musculoskeletal: positive: Normal Inspection, CVA Tenderness (right suman cva tednerenss). negative: Decreased Range of Motion Extremity: positive: Normal Capillary Refill, Normal Inspection, Normal Range of Motion. negative: Tender Integumentary: positive: Normal Color, Dry, Warm Neurologic: positive: Fully Oriented, Alert, Normal Mood/Affect, Normal Response , Motor Strength 5/5 Moderate Sedation - Procedure Monitoring Vital Signs: Procedure Monitoring Vital Signs Temperature 98.4 F 04/16/18 07:09 Pulse Rate 87 04/16/18 07:09 Respiratory Rate 18 04/16/18 07:09 Blood Pressure 128/87 04/16/18 07:09 O2 Sat by Pulse Oximetry (%) 98 04/16/18 07:09 Medical Decision Making - Medical Decision Making Patient prsenting with symptoms consistent with UTI with possible right sided pyelonephritis but non toxic appearing. Unfortunately allergic to multiple antibiotics. She admits to relief with her previous antibiotic prescribed here that she beleived was erythromycin but, per the records, it was doxycycline. We will sen her home with 100 BID doxy x 10 days with return precautions. 04/16/18 08:38 *DC/Admit/Observation/Transfer Diagnosis at time of Disposition: Pyelonephritis - Discharge Dispostion Disposition: HOME Condition at time of disposition: Fair Decision to Admit order: No - Prescriptions Prescriptions: Doxycycline Hyclate [Vibramycin -] 100 mg PO BID #20 cap - Referrals Referrals: Chika Paris MD [Primary Care Provider] - - Patient Instructions Printed Discharge Instructions: DI for Kidney Infection Additional Instructions: Please stay hydrated and take your antibiotics twice a day for the next 10 days. Please follow up with your primary care physician within a few days. Please return to the ED if your symptoms do not improve within a few days or if you notice worsening symptoms sooner such as fevers, chills, nausea, vomiting, worsening pain, or other concerning symptoms. - Post Discharge Activity
[2018-04-16 07:57] LABS: URINE APPEARANCE CLEAR; URINE BILIRUBIN NEGATIVE (<2.0 mg/dL); URINE COLOR LTYELLOW; URINE GLUCOSE (UA) NEGATIVE (NEGATIVE); URINE KETONE NEGATIVE (NEGATIVE); URINE LEUK ESTERASE TRACE (NEGATIVE); URINE NITRITE NEGATIVE (NEGATIVE); URINE PROTEIN NEGATIVE (NEGATIVE); URINE UROBILINOGEN NEGATIVE mg/dL (0.2-1.0)
[2018-04-16 08:07] LABS: EPI CELLS RARE /HPF (FEW); URINE MUCUS RARE
[2018-04-16] MEDS ORDERED: DOXYCYCLINE HYCLATE 100 MG CAPSULE PO ONE ×2 (08:41→09:00)
--- NOTE | 2018-04-16 09:27 | PDOC ---
Attending Attestation - Resident Resident Name: Danii Nguyen - ED Attending Attestation I have performed the following: I have examined & evaluated the patient, The case was reviewed & discussed with the resident, I agree w/resident's findings & plan - HPI HPI: 04/16/18 09:25 48-year-old female diabetic with history of recurring UTIs and multiple ALLERGIES presents with her typical UTI symptoms of dysuria and frequency with suprapubic and low back pain since yesterday, no fevers or chills, no other complaints. Recognize or UTI symptoms so she presents for antibiotics. Does have a history of kidney stones, but denies any associated pain. - Physicial Exam PE: 04/16/18 09:26 Afebrile, vital signs normal Well-appearing, obese Abdomen is soft and nondistended, suprapubic discomfort to palpation, slight right CVA tenderness No rash - Medical Decision Making 04/16/18 09:26 48-year-old female with history of UTI presents with typical clinical UTI symptoms, no evidence of Sirs/sepsis and is well-appearing without red flags. Slight CVA tenderness but no suspicion for renal colic. Urinalysis shows elevated white blood cells, only 3 red blood cells No indication for emergent imaging, has multiple ALLERGIES but pansensitive Escherichia coli in the past, treated successfully with doxycycline so we'll prescribe same with strict return precautions
== END 2018-04-16 09:07 | disposition home or self-care (01) ==
LOC: JER 06:07
DX: N12 Tubulo-interstitial nephritis, not specified as acute or chronic (principal)
CPT/HCPCS: 81003; 81015; 87086; 99281-25

== ENCOUNTER 2019-02-07 07:33 | Emergency (ER) | payer OTHER ==
[2019-02-07 07:41] VITALS: BP 127/86; PULSE 98; TEMP 98.3; BMI 43.5
--- NOTE | 2019-02-07 08:04 | PDOC ---
History of Present Illness - General Chief Complaint: Sore Throat Stated Complaint: EAR AND THROAT PAIN Time Seen by Provider: 02/07/19 07:53 History Source: Patient Past History - Past Medical History Allergies/Adverse Reactions: Allergies Allergy/AdvReac Type Severity Reaction Status Date / Time cephalexin monohydrate Allergy Rash Verified 02/07/19 07:41 [From Keflex] ciprofloxacin [From Cipro] Allergy Rash Verified 02/07/19 07:41 ciprofloxacin HCl Allergy Rash Verified 02/07/19 07:41 [From Cipro] gentamicin [Gentamicin] Allergy Rash Verified 02/07/19 07:41 levofloxacin [From Levaquin] Allergy Rash Verified 02/07/19 07:41 nitrofurantoin Allergy Hives Verified 02/07/19 07:41 [From Macrobid] nitrofurantoin Allergy Hives Verified 02/07/19 07:41 macrocrystalline [From Macrobid] Penicillins Allergy Rash Verified 02/07/19 07:41 Sulfa (Sulfonamide Allergy Rash Verified 02/07/19 07:41 Antibiotics) [Sulfa(Sulfonamide Antibiotics)] Home Medications: Ambulatory Orders Sertraline HCl [Zoloft] 100 mg PO BID 06/02/15 Meloxicam [Mobic] 15 mg PO DAILY 03/12/16 Gabapentin [Neurontin] 600 mg PO DAILY 07/02/16 oxyCODONE HCL [Roxicodone -] 5 mg PO ASDIR PRN 07/02/16 Cyclobenzaprine HCl [Flexeril -] 10 mg PO TID 12/08/16 traZODone HCL [Trazodone HCl] 0 mg PO HS 12/08/16 Doxycycline Hyclate [Vibramycin -] 100 mg PO BID #20 cap 04/16/18 Acetaminophen 1,000 mg PO Q6H #30 tablet 02/07/19 Cyclobenzaprine HCl [Flexeril 10 mg] 10 mg PO HS #9 tablet 02/07/19 Anemia: No Asthma: No Cancer: No Cardiac Disorders: No CVA: No COPD: No CHF: No DVT: No Dementia: No Diabetes: Yes GI Disorders: No Disorders: Yes (MULTIPLE UTI'S, RENAL CALCULI) HTN: No Hypercholesterolemia: No Kidney Stones: Yes Liver Disease: No Psychiatric Problems: Yes (DEPRESSION ANXIETY) Seizures: No Thyroid Disease: Yes (hyper) Other medical history: fibromialgia - Surgical History Abdominal Surgery: Yes (TUBAL LIGATION) Appendectomy: No Cardiac Surgery: No Cholecystectomy: No Lung Surgery: No Neurologic Surgery: No Orthopedic Surgery: No - Immunization History Immunization Up to Date: Yes - Suicide/Smoking/Psychosocial Hx Smoking Status: No Smoking History: Never smoked Have you smoked in the past 12 months: No Number of Cigarettes Smoked Daily: 0 If you are a former smoker, when did you quit?: 18months ago Hx Alcohol Use: No Drug/Substance Use Hx: No Substance Use Type: None Hx Substance Use Treatment: No Review of Systems - Review of Systems Constitutional: No: Chills, Fever HEENTM: Yes: Ear Pain. No: Throat Pain Neurological: No: Headache, Numbness, Tingling, Dizziness *Physical Exam - Vital Signs Last Vital Signs Temp Pulse Resp BP Pulse Ox 98.3 F 98 H 18 127/86 97 02/07/19 07:38 02/07/19 07:38 02/07/19 07:38 02/07/19 07:38 02/07/19 07:38 - Physical Exam General Appearance: Yes: Appropriately Dressed. No: Apparent Distress HEENT: positive: Normal ENT Inspection, Normal Voice, Other (ttp over L TMJ, L ear/TM intact, no ttp/swelling to mastoid). negative: TMs Normal, Pharynx Normal, Scleral Icterus (R), Scleral Icterus (L) Neck: positive: Supple. negative: Lymphadenopathy (R), Lymphadenopathy (L) Respiratory/Chest: negative: Respiratory Distress Integumentary: positive: Dry, Warm Neurologic: positive: Fully Oriented, Alert, Normal Mood/Affect Medical Decision Making - Medical Decision Making 02/07/19 08:06 49-year-old morbidly obese female, history of diabetes, sleep apnea, here with left facial pain 2 days. Pain located in front of left ear, but radiates to ear and throat per patient. No dental pain, otorrhea, fever or chills. No trauma. No history of similar episode. see exam Possibly TMJ syndrome -Dc w/ pain control -Pt has own NT to f/u with *DC/Admit/Observation/Transfer Diagnosis at time of Disposition: Facial pain - Discharge Dispostion Disposition: HOME - Prescriptions Prescriptions: Acetaminophen 1,000 mg PO Q6H #30 tablet Cyclobenzaprine HCl [Flexeril 10 mg] 10 mg PO HS #9 tablet - Referrals Referrals: Chika Paris MD [Primary Care Provider] - - Patient Instructions Printed Discharge Instructions: Temporomandibular Disorder Additional Instructions: Take medications as directed and follow up with your ENT doctor if symptoms persists - Post Discharge Activity
== END 2019-02-07 08:06 | disposition home or self-care (01) ==
LOC: JER 07:33
DX: R51 Headache (principal)
CPT/HCPCS: 99281-25

== ENCOUNTER 2019-07-29 06:20 | Emergency (ER) | payer OTHER ==
[2019-07-29 07:23] VITALS: BP 131/83; PULSE 83; TEMP 98.5; BMI 42.0
--- NOTE | 2019-07-29 07:44 | PDOC ---
History of Present Illness - General Chief Complaint: Sore Throat Stated Complaint: SORE THROAT,SHOULDER AND BACK PAIN Time Seen by Provider: 07/29/19 07:22 History Source: Patient Exam Limitations: No Limitations Past History - Past Medical History Allergies/Adverse Reactions: Allergies Allergy/AdvReac Type Severity Reaction Status Date / Time cephalexin monohydrate Allergy Rash Verified 07/29/19 07:23 [From Keflex] ciprofloxacin [From Cipro] Allergy Rash Verified 07/29/19 07:23 ciprofloxacin HCl Allergy Rash Verified 07/29/19 07:23 [From Cipro] gentamicin [Gentamicin] Allergy Rash Verified 07/29/19 07:23 levofloxacin [From Levaquin] Allergy Rash Verified 07/29/19 07:23 nitrofurantoin Allergy Hives Verified 07/29/19 07:23 [From Macrobid] nitrofurantoin Allergy Hives Verified 07/29/19 07:23 macrocrystalline [From Macrobid] Penicillins Allergy Rash Verified 07/29/19 07:23 Sulfa (Sulfonamide Allergy Rash Verified 07/29/19 07:23 Antibiotics) [Sulfa(Sulfonamide Antibiotics)] Home Medications: Ambulatory Orders Sertraline HCl [Zoloft] 100 mg PO BID 06/02/15 Meloxicam [Mobic] 15 mg PO DAILY 03/12/16 Gabapentin [Neurontin] 600 mg PO DAILY 07/02/16 oxyCODONE HCL [Roxicodone -] 5 mg PO ASDIR PRN 07/02/16 Cyclobenzaprine HCl [Flexeril -] 10 mg PO TID 12/08/16 traZODone HCL [Trazodone HCl] 0 mg PO HS 12/08/16 Doxycycline Hyclate [Vibramycin -] 100 mg PO BID #20 cap 04/16/18 Acetaminophen 1,000 mg PO Q6H #30 tablet 02/07/19 Cyclobenzaprine HCl [Flexeril 10 mg] 10 mg PO HS #9 tablet 02/07/19 Anemia: No Asthma: No Cancer: No Cardiac Disorders: No CVA: No COPD: No CHF: No DVT: No Dementia: No Diabetes: Yes GI Disorders: No Disorders: Yes (MULTIPLE UTI'S, RENAL CALCULI) HTN: No Hypercholesterolemia: No Kidney Stones: Yes Liver Disease: No Psychiatric Problems: Yes (DEPRESSION ANXIETY) Seizures: No Thyroid Disease: Yes (hyper) - Surgical History Abdominal Surgery: Yes (TUBAL LIGATION) Appendectomy: No Cardiac Surgery: No Cholecystectomy: No Lung Surgery: No Neurologic Surgery: No Orthopedic Surgery: No - Immunization History Immunization Up to Date: Yes - Psycho Social/Smoking Cessation Hx Smoking Status: No Smoking History: Never smoked Have you smoked in the past 12 months: No Number of Cigarettes Smoked Daily: 0 If you are a former smoker, when did you quit?: 18months ago Information on smoking cessation initiated: No Hx Alcohol Use: No Drug/Substance Use Hx: No Substance Use Type: None Hx Substance Use Treatment: No *Physical Exam - Vital Signs Last Vital Signs Temp Pulse Resp BP Pulse Ox 98.5 F 83 20 131/83 99 07/29/19 06:25 07/29/19 06:25 07/29/19 06:25 07/29/19 06:25 07/29/19 06:25 - Physical Exam General Appearance: No: Apparent Distress HEENT: positive: Muffled/Hoarse voice (slight hoarse voice), Nasal Congestion (minimal L side). negative: Pharyngeal Erythema, Tonsillar Exudate, Tonsillar Erythema, Rhinorrhea Neck: positive: Supple. negative: Lymphadenopathy (R), Lymphadenopathy (L) Respiratory/Chest: positive: Lungs Clear, Normal Breath Sounds. negative: Respiratory Distress Cardiovascular: positive: Regular Rhythm, Regular Rate, S1, S2. negative: Murmur Integumentary: positive: Normal Color Neurologic: positive: Alert Medical Decision Making - Medical Decision Making 49 y/o F hx of DM, borderline sleep apnea, hypothyroidism, fibromyalgia, depression presents with sore throat x 3 days along with mild cough. Denies fever, chills, sob, cp, abd pain, n/v/d, rash, recent travel, sick contacts, dysphagia, acid reflux. Former smoker (quit 10 years ago). Denies recent neck surgeries. No evidence of strep pharyngitis, peritonsillar abscess, neck mass Patient in no respiratory distress This could be laryngitis/viral URI Supportive care discussed; patient has ENT she can follow-up with if symptoms worsen Return precautions discussed 07/29/19 07:40 Discharge - Discharge Information Problems reviewed: Yes Clinical Impression/Diagnosis: Sore throat Condition: Stable Disposition: HOME - Admission No - Additional Discharge Information Prescription Drug Monitoring Program (I-STOP) results: I-STOP not reviewed - Follow up/Referral Referrals: Chika Paris MD [Primary Care Provider] - 2 Days - Patient Discharge Instructions Patient Printed Discharge Instructions: DI for Laryngitis Additional Instructions: Thank you for choosing [facility]. It was a pleasure taking care of you. Do salt water gargles daily You may use Flonase daily for congestion (use for at least 3-4 days for full efficacy) Use Robitussin as needed for cough Follow-up with ENT if symptoms not improving Return to the Emergency Department if your symptoms worsen or persist, you have fever, shortness of breath, unable to swallow, vomiting or other concerning symptoms. - Post Discharge Activity
== END 2019-07-29 08:54 | disposition home or self-care (01) ==
LOC: JER 06:20
DX: J02.9 Acute pharyngitis, unspecified (principal); E11.9 Type 2 diabetes mellitus without complications; E05.90 Thyrotoxicosis, unspecified without thyrotoxic crisis or storm; F41.9 Anxiety disorder, unspecified; F32.9 Major depressive disorder, single episode, unspecified; Z87.442 Personal history of urinary calculi
CPT/HCPCS: 99282-25

== ENCOUNTER 2019-11-12 08:09 | Emergency (ER) | payer OTHER ==
[2019-11-12 08:22] VITALS: BP 156/81; PULSE 82; BMI 35.9
[2019-11-12 09:17] LABS: EPI CELLS 35 /uL (0-25.1); HYALINE CASTS 11 /uL (0-3.1); PH,URINE 7.5 (5.0-8.0); URINE APPEARANCE CLOUDY; URINE BACTERIA 8226 /uL (0-1359); URINE BILIRUBIN NEGATIVE (NEGATIVE); URINE COLOR YELLOW; URINE GLUCOSE (UA) NEGATIVE (NEGATIVE); URINE KETONE NEGATIVE (NEGATIVE); URINE LEUK ESTERASE 2+ (NEGATIVE); URINE NITRITE NEGATIVE (NEGATIVE); URINE PROTEIN NEGATIVE (NEGATIVE); URINE RBC 32 /uL (0-23.9); URINE WBC 375 /uL (0-25.8)
[2019-11-12] MEDS ORDERED: DOXYCYCLINE HYCLATE 100 MG CAPSULE PO ONE ×2 (09:41→09:46)
[2019-11-12 09:51] VITALS: TEMP 98
== END 2019-11-12 09:50 | disposition home or self-care (01) ==
LOC: JER 08:09
DX: N30.00 Acute cystitis without hematuria (principal)
CPT/HCPCS: 81003; 87086; 87186; 99284-25

== ENCOUNTER 2020-01-16 15:56 | Emergency (ER) | payer OTHER ==
[2020-01-16 16:05] VITALS: BP 139/99; PULSE 74; TEMP 97; BMI 35.0
[2020-01-16 17:24] LABS: BASO % 0.8 % (0-2.0); EOS % 1.8 % (0-4.5); HEMOGLOBIN 12.1 GM/dL (10.7-15.3); LYMPH % 52.4 % (8-40); MCH 30.8 pg (25.7-33.7); MCHC 33.6 g/dl (32.0-36.0); MEAN CELL VOLUME 91.6 fl (80-96); MEAN PLT VOLUME 6.9 fl (7.5-11.1); PLATELET COUNT 242 K/MM3 (134-434); RBC 3.93 M/mm3 (3.60-5.2); RDW 13.6 % (11.6-15.6); WHITE BLOOD COUNT 7.6 K/mm3 (4.0-10.0)
[2020-01-16 17:33] LABS: INR 0.92 (0.83-1.09); PROTHROMBIN TIME (PATIENT) 10.8 SEC (9.7-13.0)
[2020-01-16 17:51] LABS: ALBUMIN 3.7 g/dl (3.4-5.0); BILIRUBIN,TOTAL 0.3 mg/dL (0.2-1); BLOOD UREA NITROGEN 12.9 mg/dL (7-18); CALCIUM 8.6 mg/dL (8.5-10.1); CREATININE 0.8 mg/dL (0.55-1.3); POTASSIUM 3.9 mmol/L (3.5-5.1); TOT PROT 7.2 g/dl (6.4-8.2)
--- NOTE | 2020-01-16 17:56 | PDOC ---
History of Present Illness - General History Source: Patient Exam Limitations: No Limitations - History of Present Illness Initial Comments: 01/16/20 17:48 Patient is a 49-year-old female with a history of von Willebrand's, fibromyalgia, hypertension, and has been worked up for early possible lymphoma who presents to the ED with an anterior chest wall contusion that has gotten worse since yesterday. She states she has an area of ecchymosis that started out about dime sized yesterday and got much bigger today. She denies any known injury. She states there is also a "knot" under the wound that is very tender. She denies any known trauma. She denies any fevers or chills. When asked what the patient meant about possible lymphoma, she states 1 out of 3 of the blood works was positive for lymphoma and she is being watched by heme-onc. She sta nguyễn she has to go get blood work every 3 months for further evaluation but is currently not having any treatment. The patient denies any increased bleeding of her gingiva for heavier periods. <Dorie Willard - Last Filed: 01/16/20 19:27> <Emerald Braden - Last Filed: 01/18/20 10:36> - General Chief Complaint: Pain Stated Complaint: HEMATOMA Time Seen by Provider: 01/16/20 16:30 Past History - Medical History Anemia: No Asthma: No Cancer: No Cardiac Disorders: No CVA: No COPD: No CHF: No DVT: No Dementia: No Diabetes: Yes GI Disorders: No Disorders: Yes (MULTIPLE UTI'S, RENAL CALCULI) HTN: No Hypercholesterolemia: No Kidney Stones: Yes Liver Disease: No Psychiatric Problems: Yes (DEPRESSION ANXIETY) Seizures: No Thyroid Disease: Yes (hyper) Other medical history: von williebrands disease - Surgical History Abdominal Surgery: Yes (TUBAL LIGATION) Appendectomy: No Cardiac Surgery: No Cholecystectomy: No Lung Surgery: No Neurologic Surgery: No Orthopedic Surgery: No - Reproductive History Is Patient Now?: No - Immunization History Immunization Up to Date: Yes - Psycho-Social/Smoking History Smoking Status: No Smoking History: Never smoked Have you smoked in the past 12 months: No Number of Cigarettes Smoked Daily: 0 If you are a former smoker, when did you quit?: 18months ago <Dorie Willard - Last Filed: 01/16/20 19:27> <Emerald Braden - Last Filed: 01/18/20 10:36> - Medical History Allergies/Adverse Reactions: Allergies Allergy/AdvReac Type Severity Reaction Status Date / Time cephalexin monohydrate Allergy Rash Verified 01/16/20 16:05 [From Keflex] ciprofloxacin [From Cipro] Allergy Rash Verified 01/16/20 16:05 ciprofloxacin HCl Allergy Rash Verified 01/16/20 16:05 [From Cipro] gentamicin [Gentamicin] Allergy Rash Verified 01/16/20 16:05 levofloxacin [From Levaquin] Allergy Rash Verified 01/16/20 16:05 nitrofurantoin Allergy Hives Verified 01/16/20 16:05 [From Macrobid] nitrofurantoin Allergy Hives Verified 01/16/20 16:05 macrocrystalline [From Macrobid] Penicillins Allergy Rash Verified 01/16/20 16:05 Sulfa (Sulfonamide Allergy Rash Verified 01/16/20 16:05 Antibiotics) [Sulfa(Sulfonamide Antibiotics)] Home Medications: Ambulatory Orders Sertraline HCl [Zoloft] 100 mg PO BID 06/02/15 Meloxicam [Mobic] 15 mg PO DAILY 03/12/16 Gabapentin [Neurontin] 600 mg PO DAILY 07/02/16 oxyCODONE HCL [Roxicodone -] 5 mg PO ASDIR PRN 07/02/16 Cyclobenzaprine HCl [Flexeril -] 10 mg PO TID 12/08/16 traZODone HCL [Trazodone HCl] 0 mg PO HS 12/08/16 Doxycycline Hyclate [Vibramycin -] 100 mg PO BID #20 cap 04/16/18 Acetaminophen 1,000 mg PO Q6H #30 tablet 02/07/19 Cyclobenzaprine HCl [Flexeril 10 mg] 10 mg PO HS #9 tablet 02/07/19 Doxycycline Hyclate 100 mg PO BID 7 Days #14 tablet 11/12/19 Review of Systems - Review of Systems Comments:: 01/16/20 17:51 - Review of Systems Able to Perform ROS?: Yes Constitutional: No: Fever, Chills, Loss of Appetite, Night Sweats, Weakness HEENTM: No: Eye Pain, Vision changes, Ear Pain, Throat Pain, Throat Swelling, Mouth Pain, Difficulty Swallowing Respiratory: No: Cough, Shortness of Breath, Wheezing, Sputum Production Cardiac (ROS): No: Chest Pain, Chest Tightness, Palpitations, Irregular Heart Beat, Edema ABD/GI: No: Nausea, Vomiting, Abdominal Pain, Diarrhea : No Dysuria, No Hematuria, No Frequency, No Urgency Musculoskeletal: No: Muscle Pain, Back Pain, Joint Pain, Muscle Weakness, Neck Pain Integumentary: No: Lesions, Rash; positive: Anterior chest wall ecchymosis Neurological: No: Headache, Numbness, Tingling, Weakness, Speech Difficulties <Dorie Willard - Last Filed: 01/16/20 19:27> *Physical Exam - Vital Signs Last Vital Signs Temp Pulse Resp BP Pulse Ox 97 F L 74 18 139/99 99 01/16/20 16:01/16/20 16:01/16/20 16:01/16/20 16:01/16/20 16:01 - Physical Exam 01/16/20 17:56 - Physical Exam General Appearance: Nourished, Appropriately Dressed, No Distress HEENT: EOMI, Normal Voice, Hearing Grossly Normal Neck: Supple, No Lymphadenopathy (R), No Lymphadenopathy (L), No Rigidity, No D ecreased range of motion Respiratory/Chest: Lungs Clear, Normal Breath Sounds. No Respiratory Distress, No Accessory Muscle Use Cardiovascular: Regular Rhythm, Regular Rate, S1, S2 Gastrointestinal/Abdominal: Normal Bowel Sounds, Soft. Non-tender, No Guarding, No Rebound, No Rigidity Musculoskeletal: Normal Inspection. No Decreased Range of Motion Extremity: Normal Capillary Refill, Normal Inspection Integumentary: Normal Color, Dry. No Rash; there is a roughly 5 cm area of ecc hymosis to the left anterior chest wall with an underlying firm and tender area Neurologic: director of early childhood education II-XII NML intact, Fully Oriented, Alert, Normal Mood/Affect, Normal Response <MontseDorie D - Last Filed: 01/16/20 19:27> - Vital Signs Last Vital Signs Temp Pulse Resp BP Pulse Ox 97 F L 74 18 139/99 99 01/16/20 16:01 01/16/20 16:01 01/16/20 16:01 01/16/20 16:01/16/20 16:01 <Emerald Braden - Last Filed: 01/18/20 10:36> ED Treatment Course - LABORATORY CBC & Chemistry Diagram: 01/16/20 17:00 01/16/20 17:00 - ADDITIONAL ORDERS Additional order review: Laboratory Results 01/16/20 17:00 PT with INR 10.80 INR 0.92 PTT (Actin FS) 39.0 H 01/16/20 17:00 RBC 3.93 MCV 91.6 MCHC 33.6 RDW 13.6 MPV 6.9 L Neutrophils % 40.0 L D Lymphocytes % 52.4 H D Monocytes % 5.0 Eosinophils % 1.8 Basophils % 0.8 01/16/20 18:53 Laboratory Tests 01/16/20 01/16/20 17:00 17:00 PT with INR 10.80 INR 0.92 PTT (Actin FS) 39.0 H Calcium 8.6 Total Bilirubin 0.3 AST 22 ALT 18 Alkaline Phosphatase 53 Total Protein 7.2 Albumin 3.7 - RADIOLOGY Radiology Studies Ordered: Category Date Time Status SOFT TISSUE CHEST AND BACK US [US] Stat Ultrasound 01/16/20 16:57 Ordered <Dorie Willard - Last Filed: 01/16/20 19:27> - LABORATORY CBC & Chemistry Diagram: 01/16/20 17:00 01/16/20 17:00 - ADDITIONAL ORDERS Additional order review: 01/16/20 17:00 RBC 3.93 MCV 91.6 MCHC 33.6 RDW 13.6 MPV 6.9 L Neutrophils % 40.0 L D Lymphocytes % 52.4 H D Monocytes % 5.0 Eosinophils % 1.8 Basophils % 0.8 <Emerald Braden - Last Filed: 01/18/20 10:36> Medical Decision Making - Medical Decision Making 01/16/20 17:59 Assessment: Patient is a 49-year-old female with history of von Willebrand's disease and possible early lymphoma who developed an anterior chest wall ecchymosis and firmness with tenderness. Plan: -Labs including coags ordered -Anterior chest wall ultrasound ordered for further evaluation -Will reassess 01/16/20 18:53 The patient has been made aware that her lab work is within normal limits aside from a slightly elevated PTT which is consistent with von Willebrand's. She still pending her ultrasound results. She is resting comfortably in the chair. 01/16/20 19:27 The patient has been made aware that her ultrasound shows a hematoma in the left anterior chest consistent with where her ecchymosis is she has been made aware that she can apply warm packs or heating pad to the area to help reabsorb the hematoma. There is no evidence of clot. She should follow-up with her primary doctor for further evaluation and treatment or with her software design engineer, Dr. Blanco. She understands and agrees with this treatment plan and she is stable for discharge. <Dorie Willard - Last Filed: 01/16/20 19:27> - Medical Decision Making I reviewed the case with the mid-level practitioner and agree with the mid-level practitioner's assessment, diagnosis and disposition. <Emerald Braden - Last Filed: 01/18/20 10:36> Discharge - Discharge Information Problems reviewed: Yes <Dorie Willard - Last Filed: 01/16/20 19:27> <Emerald Braden - Last Filed: 01/18/20 10:36> - Discharge Information Clinical Impression/Diagnosis: Hematoma of left chest wall Qualifiers: Encounter type: initial encounter Qualified Code(s): S20.212A - Contusion of left front wall of thorax, initial encounter Condition: Stable Disposition: HOME - Follow up/Referral Referrals: Chika Paris MD [Primary Care Provider] - Call tomorrow Mary Blanco MD [Staff Physician] - Call tomorrow - Patient Discharge Instructions Patient Printed Discharge Instructions: DI for Hematoma (Bruise) Additional Instructions: You can apply a heating pad or hot packs to your left anterior chest wall to help your body reabsorb the hematoma. Take Tylenol for pain but you should avoid any NSAIDs as these can increase bleeding. Be sure to follow-up with your primary doctor or your software design engineer within 1 to 2 days for repeat evaluation. - Post Discharge Activity
== END 2020-01-16 20:15 | disposition home or self-care (01) ==
LOC: JER 15:56
DX: S20.212A Contusion of left front wall of thorax, initial encounter (principal)
CPT/HCPCS: 36415; 76604; 80053; 85025; 85610; 85730; 99284-25

== ENCOUNTER 2022-04-19 10:36 | Emergency (ER) | payer OTHER ==
[2022-04-19 11:05] VITALS: BP 134/97; PULSE 75; RESP 18; TEMP 98; BMI 31.6
== END 2022-04-19 11:07 | disposition home or self-care (01) ==
LOC: FER 10:36
DX: M67.431 Ganglion, right wrist (principal)
CPT/HCPCS: 99281-25

== ENCOUNTER 2023-10-01 09:07 | Emergency (ER) | payer OTHER ==
[2023-10-01 09:28] VITALS: TEMP 99.1; BMI 37.4
[2023-10-01 09:54] LABS: HEMATOCRIT 37.7 % (32.4-45.2); HEMOGLOBIN 12.3 G/dL (10.7-15.3); INR 0.9 (0.83-1.09); MCH 29.5 pg (25.7-33.7); MCHC 32.6 g/dl (32.0-36.0); MEAN CELL VOLUME 90.4 fl (80-96); MEAN PLT VOLUME 6.7 fl (7.5-11.1); PROTHROMBIN TIME (PATIENT) 10.3 SEC (9.7-13.0); RBC 4.17 10^6/uL (3.60-5.2); RDW 14.2 % (11.6-15.6); WHITE BLOOD COUNT 4.6 10^3/uL (4.0-10.8)
[2023-10-01 09:57] LABS: ACTIVATED PTT 40.1 SECONDS (25.2-36.5)
[2023-10-01 10:00] LABS: PLATELET ESTIMATE ADEQUATE
[2023-10-01] MEDS ORDERED: NITROGLYCERIN SUBLINGUAL 1/150 0.4 MG TAB ONE (10:54)
[2023-10-01] MEDS ORDERED: ASPIRIN 81 MG CHEWABLE TABLETS ONE (10:55)
[2023-10-01] MEDS: NITROGLYCERIN SUBLINGUAL 1/150 0.4 MG TAB SL ONE (10:58)
[2023-10-01] MEDS: ASPIRIN 81 MG CHEWABLE TABLETS PO ONE (10:58)
[2023-10-01 12:08] LABS: POTASSIUM 3.9 mmol/L (3.5-5.1)
[2023-10-01 12:13] LABS: ALBUMIN 3.3 g/dl (3.4-5.0); BLOOD UREA NITROGEN 12.7 mg/dL (7-18); CALCIUM 8.8 mg/dL (8.5-10.1); MAGNESIUM 1.8 mg/dL (1.8-2.4)
[2023-10-01 12:16] LABS: CREATININE 0.7 mg/dL (0.55-1.3)
[2023-10-01 12:18] LABS: TOT PROT 6.6 g/dl (6.4-8.2)
[2023-10-01 12:31] LABS: BILIRUBIN,TOTAL 0.6 mg/dL (0.2-1)
[2023-10-01] MEDS: ACETAMINOPHEN 1000 MG/100 ML BAG IVPB ONE (13:45)
[2023-10-01] MEDS ORDERED: HEPARIN NA (PORCINE) 5,000 UNITS/ML 1ML VIAL IVPUSH PRN (13:55)
[2023-10-01] MEDS: HEPARIN NA (PORCINE) 5,000 UNITS/ML 1ML VIAL IVPUSH PRN (14:30)
[2023-10-01] MEDS: HEPARIN INFUSION - 25,000 UNITS/500 ML INFUS.BAG IVPB SCH (14:45)
[2023-10-01 14:52] VITALS: BP 129/100; PULSE 73; RESP 18
== END 2023-10-01 14:39 | disposition short-term general hospital (02) ==
LOC: FER 09:07 → UNDOADMIN 11:04 → FM/S 11:04 → FER 14:39
DX: I21.4 Non-ST elevation (NSTEMI) myocardial infarction (principal)
CPT/HCPCS: 36415; 71045-TC-FY; 71275-TC; 80053; 81003; 81015; 83735; 84484; 85027; 85379; 85610; 85730; 87086; 87186; 93005; 93306-TC; 99291; J0131; J1644; Q9967

== ENCOUNTER 2023-12-09 11:41 | Emergency (ER) | payer OTHER ==
[2023-12-09 11:50] VITALS: PULSE 86; RESP 18; TEMP 97.6; BMI 37.5
[2023-12-09 13:52] LABS: EOS % 2.9 % (0-4.5); HEMATOCRIT 35.9 % (32.4-45.2); HEMOGLOBIN 11.9 GM/dL (10.7-15.3); LYMPH % 35.7 % (8-40); MCH 29.1 pg (25.7-33.7); MCHC 33.3 g/dl (32.0-36.0); MEAN CELL VOLUME 87.2 fl (80-96); MEAN PLT VOLUME 6.3 fl (7.5-11.1); MONO % 7.4 % (3.8-10.2); PLATELET COUNT 226 10^3/uL (134-434); RBC 4.11 M/mm3 (3.60-5.2); RDW 13.6 % (11.6-15.6); WHITE BLOOD COUNT 3.2 K/mm3 (4.0-10.0)
[2023-12-09] MEDS ORDERED: ACETAMINOPHEN INJECTION 100 ML IVPB ONE (13:55)
[2023-12-09] MEDS: ACETAMINOPHEN 1000 MG/100 ML BAG IVPB ONE (13:59)
[2023-12-09 14:33] LABS: POTASSIUM 4.2 mmol/L (3.5-5.1)
[2023-12-09 14:35] LABS: ALBUMIN 3.3 g/dl (3.4-5.0); CALCIUM 8.9 mg/dL (8.5-10.1)
[2023-12-09 14:39] LABS: CREATININE 0.8 mg/dL (0.55-1.3)
[2023-12-09 14:40] LABS: BILIRUBIN,TOTAL 0.3 mg/dL (0.2-1); TOT PROT 7.1 g/dl (6.4-8.2)
[2023-12-09] MEDS ORDERED: DALBAVANCIN HCL 500 MG VIAL (RESTRICTED TO ID ONLY) IVPB ONE (16:51)
[2023-12-09] MEDS ORDERED: DEXAMETHASONE SOD PHOSPHATE 10 MG/1 ML VIAL ONE (16:52)
[2023-12-09] MEDS: DALBAVANCIN HCL 1,500 MG in DEXTROSE 5%-WATER - 500 ML IVPB ONE (17:10)
[2023-12-09] MEDS: DEXAMETHASONE SOD PHOSPHATE 10 MG/1 ML VIAL IVPUSH ONE (17:11)
[2023-12-09] MEDS ORDERED: DOXYCYCLINE HYCLATE 100 MG CAPSULE PO ONE ×2 (17:18→18:49)
[2023-12-09 19:00] VITALS: BP 128/74
== END 2023-12-09 19:21 | disposition home or self-care (01) ==
LOC: JER 11:41
PROC: 3E03329 Introduction of Other Anti-infective into Peripheral Vein, Percutaneous Approach (ICD-10-PCS; principal; 2023-12-09)
PROC: 3E033NZ Introduction of Analgesics, Hypnotics, Sedatives into Peripheral Vein, Percutaneous Approach (ICD-10-PCS; 2023-12-09)
PROC: 3E033GC Introduction of Other Therapeutic Substance into Peripheral Vein, Percutaneous Approach (ICD-10-PCS; 2023-12-09)
PROC: 3E033GC Introduction of Other Therapeutic Substance into Peripheral Vein, Percutaneous Approach (ICD-10-PCS; 2023-12-09)
DX: L03.116 Cellulitis of left lower limb (principal)
CPT/HCPCS: 36415; 80053; 85025; 93971-TC; 99284-25; J0131; J0875; J1100

== ENCOUNTER 2024-04-14 10:16 | Observation (INO) | payer OTHER ==
[2024-04-14] MEDS ORDERED: ACETAMINOPHEN INJECTION 100 ML ONE (10:47)
[2024-04-14 10:49] LABS: BASO % 0.6 % (0-2.0); EOS % 1.1 % (0-4.5); HEMATOCRIT 37.4 % (32.4-45.2); HEMOGLOBIN 12.6 GM/dL (10.7-15.3); MCH 29.4 pg (25.7-33.7); MCHC 33.8 g/dl (32.0-36.0); MEAN PLT VOLUME 6.7 fl (7.5-11.1); MONO % 6.6 % (3.8-10.2); NEUT % 50.7 % (42.8-82.8); PLATELET COUNT 327 10^3/uL (134-434); RDW 14.7 % (11.6-15.6); WHITE BLOOD COUNT 6.7 K/mm3 (4.0-10.0)
[2024-04-14] MEDS: ACETAMINOPHEN 1000 MG/100 ML BAG IVPB ONE (10:53)
[2024-04-14 11:25] LABS: POTASSIUM 4.2 mmol/L (3.5-5.1)
[2024-04-14 11:27] LABS: ALBUMIN 3.7 g/dl (3.4-5.0); BLOOD UREA NITROGEN 21.2 mg/dL (7-18); CALCIUM 10.3 mg/dL (8.5-10.1)
[2024-04-14 11:32] LABS: BILIRUBIN,TOTAL 0.8 mg/dL (0.2-1); TOT PROT 8.1 g/dl (6.4-8.2)
[2024-04-14 13:23] LABS: INR 1.05 (0.83-1.09); PROTHROMBIN TIME (PATIENT) 11.8 SEC (9.7-13.0)
[2024-04-14 13:25] LABS: ACTIVATED PTT 43.6 SECONDS (25.2-36.5)
[2024-04-14] MEDS ORDERED: KETOROLAC TROMETHAMINE 15 MG/ML VIAL ONE (16:52)
[2024-04-14] MEDS: KETOROLAC TROMETHAMINE 15 MG/ML VIAL IVPUSH ONE (17:17)
[2024-04-14] MEDS ORDERED: FAMOTIDINE 20 MG/50 ML IVPB 20 MG/50 ML MG IVPB ONE (19:56)
[2024-04-14] MEDS ORDERED: ACETAMINOPHEN 500 MG TABLET (FP) PO PRN (19:59)
[2024-04-14] MEDS ORDERED: DOCUSATE SODIUM 100 MG CAPSULE (FP) PO PRN (19:59)
[2024-04-14] MEDS: SODIUM CHLORIDE 500 ML IV STA (21:05)
[2024-04-14] MEDS ORDERED: MORPHINE SULFATE 2 MG/ML SYRINGE ONE (21:19)
[2024-04-14] MEDS ORDERED: INSULIN ASPART SLIDING SCALE (NOVOLOG) 1 VIAL SQ SCH (22:00)
[2024-04-14] MEDS: MORPHINE SULFATE 2 MG/ML SYRINGE IVPUSH ONE (22:22)
[2024-04-14] MEDS ORDERED: MAG HYDROX/AL HYDROX/SIMETH 30 ML UNIT-DOSE CUP ONE (22:26)
[2024-04-14] MEDS: traMADol HCL 50 MG TABLET PO ONE (22:43)
[2024-04-14] MEDS: MAG HYDROX/AL HYDROX/SIMETH 30 ML UNIT-DOSE CUP PO ONE (22:43)
[2024-04-14 23:44] VITALS: BMI 40.3
[2024-04-14 23:50] LABS: HIV INTERPRETATION NEGATIVE (NEGATIVE)
[2024-04-15 02:39] VITALS: RESP 18
[2024-04-15 08:27] LABS: BASO % 0.8 % (0-2.0); HEMATOCRIT 35.5 % (32.4-45.2); HEMOGLOBIN 11.8 GM/dL (10.7-15.3); LYMPH % 37.9 % (8-40); MCH 29.5 pg (25.7-33.7); MCHC 33.4 g/dl (32.0-36.0); MEAN CELL VOLUME 88.5 fl (80-96); MEAN PLT VOLUME 6.3 fl (7.5-11.1); MONO % 6.9 % (3.8-10.2); NEUT % 52.4 % (42.8-82.8); PLATELET COUNT 284 10^3/uL (134-434); RBC 4.01 M/mm3 (3.60-5.2); RDW 14.4 % (11.6-15.6); WHITE BLOOD COUNT 5.1 K/mm3 (4.0-10.0)
[2024-04-15 08:44] LABS: POTASSIUM 3.6 mmol/L (3.5-5.1)
[2024-04-15] MEDS: FLUoxetine HCL 20 MG CAPSULE PO SCH (08:44)
[2024-04-15] MEDS: clonazePAM 0.25 MG ODT TABLETS SL SCH (08:44)
[2024-04-15 08:48] LABS: BLOOD UREA NITROGEN 20.7 mg/dL (7-18); CALCIUM 9.3 mg/dL (8.5-10.1)
[2024-04-15 08:49] LABS: MAGNESIUM 1.8 mg/dL (1.8-2.4)
[2024-04-15 08:52] LABS: CREATININE 0.8 mg/dL (0.55-1.3); PHOSPHOROUS 4.2 mg/dL (2.5-4.9)
[2024-04-15] MEDS ORDERED: clonazePAM 0.5 MG ODT TABLETS SL SCH (09:00)
[2024-04-15 09:16] VITALS: TEMP 98.4
[2024-04-15] MEDS ORDERED: PATIENT'S OWN MEDICATION (NON-FORMULARY) (Fluoxetine Hcl [Prozac] 40 MG Capsule) PO SCH (10:00)
[2024-04-15] MEDS ORDERED: PANTOPRAZOLE SODIUM 40 MG VIAL IVPUSH SCH (10:00)
[2024-04-15] MEDS: FAMOTIDINE 20 MG TABLET PO SCH (10:45)
[2024-04-15] MEDS: PANTOPRAZOLE 40 MG TABLET PO SCH (10:45)
[2024-04-15] MEDS: PATIENT'S OWN MEDICATION (NON-FORMULARY) (Famotidine 40 MG Tablet) PO SCH (10:46)
[2024-04-15] MEDS: DEXTROSE 5%-NORMAL SALINE 1,000 ML IV SCH (10:58)
[2024-04-15] MEDS ORDERED: LIPASE/PROTEASE/AMYLASE 36,000 UNIT CAPSULE PO SCH (12:00)
[2024-04-15 14:54] VITALS: BP 99/65; PULSE 92
[2024-04-15] MEDS ORDERED: clonazePAM 0.25 MG ODT TABLETS SL PRN (22:00)
[2024-04-15] MEDS ORDERED: ATORVASTATIN CA 40 MG TABLET (FP) PO SCH (22:00)
[2024-04-16] MEDS ORDERED: GABAPENTIN 300 MG CAPSULE PO SCH (10:00)
== END 2024-04-15 17:50 | disposition home or self-care (01) ==
LOC: JER 10:16 → JERBED 18:28 → J4S 23:06
PROVIDERS: ADMIT Student in an Organized Health Care Education/Training Program; ATTEND Internal Medicine
PROC: 3E033NZ Introduction of Analgesics, Hypnotics, Sedatives into Peripheral Vein, Percutaneous Approach (ICD-10-PCS; principal; 2024-04-14)
PROC: 3E033GC Introduction of Other Therapeutic Substance into Peripheral Vein, Percutaneous Approach (ICD-10-PCS; 2024-04-14)
PROC: 3E0333Z Introduction of Anti-inflammatory into Peripheral Vein, Percutaneous Approach (ICD-10-PCS; 2024-04-14)
PROC: 3E0337Z Introduction of Electrolytic and Water Balance Substance into Peripheral Vein, Percutaneous Approach (ICD-10-PCS; 2024-04-14)
DX: I50.30 Unspecified diastolic (congestive) heart failure (principal); I34.0 Nonrheumatic mitral (valve) insufficiency; I11.0 Hypertensive heart disease with heart failure; R07.9 Chest pain, unspecified; D68.00 Von Willebrand disease, unspecified; G47.33 Obstructive sleep apnea (adult) (pediatric); Z87.891 Personal history of nicotine dependence; Z88.8 Allergy status to other drugs, medicaments and biological substances; F32.A Depression, unspecified
CPT/HCPCS: 36415; 71045-TC-FY; 71275-TC; 74174-TC; 80048; 80053; 82962; 83735; 84100; 84439; 84443; 84484; 85025; 85610; 85730; 86803; 86850; 86900; 86901; 87389; 93005; 93010; 93306-TC; 96361; 96365; 96375; 99285-25; G0378; J0131; Q9967

== ENCOUNTER 2024-08-20 11:04 | Emergency (ER) | payer OTHER ==
[2024-08-20 11:36] VITALS: BP 104/68; PULSE 67; RESP 18; TEMP 98.8; BMI 35.4
[2024-08-20] MEDS ORDERED: ACETAMINOPHEN 500 MG TABLET (FP) ONE (11:51)
[2024-08-20] MEDS: ACETAMINOPHEN 500 MG TABLET (FP) PO ONE (12:00)
[2024-08-20] MEDS ORDERED: HYDROmorphone HCL 2 MG TABLET ONE (12:31)
[2024-08-20] MEDS: LIDOCAINE 5% TOPICAL PATCH TP ONE (12:41)
[2024-08-20] MEDS ORDERED: LIDOCAINE 5% TOPICAL PATCH ONE (12:41)
[2024-08-20] MEDS ORDERED: ONDANSETRON *ODT* 4 MG TABLET ONE (14:11)
[2024-08-20] MEDS: ONDANSETRON *ODT* 4 MG TABLET SL ONE (14:14)
[2024-08-20 15:01] LABS: HCV DIAGNOSTIC IN-HOUSE W/RFLX NON-REACTIVE (NONREACTIVE); HIV INTERPRETATION NEGATIVE (NEGATIVE)
[2024-08-20] MEDS ORDERED: LIDOCAINE PATCH REMOVAL MC ONE (22:00)
== END 2024-08-20 15:47 | disposition home or self-care (01) ==
LOC: FER 11:04
DX: S70.12XA Contusion of left thigh, initial encounter (principal); S80.211A Abrasion, right knee, initial encounter; M25.552 Pain in left hip; W01.0XXA Fall on same level from slipping, tripping and stumbling without subsequent striking against object, initial encounter
CPT/HCPCS: 36415; 72170-TC-FY; 72192-TC; 73502-TC-LT-FY; 73552-TC-LT-FY; 73700-TC-RT; 86803; 87389; 99284-25; Q0162

== ENCOUNTER 2024-09-19 08:07 | Emergency (ER) | payer OTHER ==
[2024-09-19 08:20] VITALS: BP 132/72; PULSE 71; RESP 18; TEMP 98; BMI 33.9
== END 2024-09-19 10:19 | disposition home or self-care (01) ==
LOC: JER 08:07
DX: M79.652 Pain in left thigh (principal)
CPT/HCPCS: 93971-TC; 99284-25